=== PATIENT | female | born 1965 | race Caucasian/White ===

== ENCOUNTER → 2021-02-13 15:19 | Outpatient (CLI) | payer OTHER, SELFPAY ==
--- NOTE | ~2021-02-13 | XR_ITS ---
EXAMINATION: XR abdomen/kub 1V INDICATION: History of kidney stones TECHNIQUE: Supine views of the abdomen were obtained on 2 radiographs. COMPARISON: CT from the same date FINDINGS: The 4 mm left kidney stone seen on CT is not definitely identified. The bowel gas pattern i s normal. There are phleboliths of the pelvis. IMPRESSION: 1. No urolithiasis identified. Reviewed, dictated and finalized at location A.
--- NOTE | ~2021-02-13 | CT_ITS ---
EXAMINATION: CT abdomen pelvis wo con DATE: 02/13/2021 15:44 INDICATION: Recent urinary tract infection, history of kidney stones TECHNIQUE: Computed tomography (CT) of the abdomen and pelvis was performed without intravenous contr ast. The dose-length product (DLP) was 270.44 mGy-cm. Automated exposure control and iterative recons truction technique were employed. COMPARISON: None FINDINGS: Minimal dependent atelectasis is present in the lung bases. The heart size is normal. Cysts of the liver measure up to 3.8 cm in the right hepatic lobe. Punctate calcifications in an otherwise normal spleen likely represent healed granulomatous disease. The pancreas, gallbladder, and adrenal glands are normal. There is a 4 mm linear nonobstructing stone of the left kidney lower pole. The rig ht kidney is unremarkable. No stones are present in the ureters or bladder. There is no hydronephrosi s or hydroureter. No pathologically enlarged abdominal or pelvic lymph nodes are identified. There is no free intraperitoneal gas or evidence of bowel obstruction. There is mild lumbar spondylosis. IMPRESSION: 1. Nonobstructing left nephrolithiasis. Reviewed, dictated and finalized at location A.
== END ==
PROVIDERS: PCP Internal Medicine; Visit Provider Urology
DX: N20.0 Calculus of kidney (principal)
CPT/HCPCS: 74018; 74176

== ENCOUNTER 2021-11-27 13:50 | Outpatient (CLI) | payer OTHER, SELFPAY ==
--- NOTE | ~2021-11-27 | XR_ITS ---
EXAMINATION: XR abdomen/kub 1V DATE: 11/27/2021 14:23 INDICATION: Kidney stones. TECHNIQUE: A supine view of the abdomen on 2 radiographs was obtained. COMPARISON: CT abdomen and pelvis 02/13/2021 FINDINGS: There is a 2 mm stone in left kidney. There are no dilated loops of bowel. There are phlebo liths in the pelvis. IMPRESSION: 1. 2 mm stone in left kidney. Reviewed, dictated and finalized at location A.
== END 2021-11-27 13:51 | disposition home or self-care (01) ==
PROVIDERS: PCP Internal Medicine; Visit Provider Urology
DX: N20.0 Calculus of kidney (principal)
CPT/HCPCS: 74018

== ENCOUNTER 2022-12-24 14:14 | Outpatient (CLI) | payer OTHER, SELFPAY ==
--- NOTE | ~2022-12-24 | XR_ITS ---
EXAM: XR abdomen/kub 1V DATE: 12/24/2022 15:52 HISTORY: BILATERAL KIDNEY STONES . COMPARISON: 11/27/2021. FINDINGS: Normal bowel gas pattern. No organomegaly. Punctate calcifications project over the left i nferior renal shadow. Pelvic phleboliths. Regional bones and soft tissues normal for age. IMPRESSION: Left nephrolithiasis. Reviewed, dictated and finalized at location K. IMPRESSION: Left nephrolithiasis.
== END 2022-12-24 14:15 | disposition home or self-care (01) ==
PROVIDERS: PCP Family Medicine; Visit Provider Urology
DX: N20.0 Calculus of kidney (principal)
CPT/HCPCS: 74018

== ENCOUNTER 2023-12-30 14:18 | Outpatient (CLI) | payer OTHER, SELFPAY ==
--- NOTE | ~2023-12-30 | XR_ITS ---
EXAM: XR abdomen/kub 1V DATE: 12/30/2023 14:42 HISTORY: [facility] KIDNEY STONES F/U . COMPARISON: 12/24/2022. FINDINGS: Clear lung bases. Normal bowel gas pattern. No organomegaly. Punctate hyperdensities proje ct over the kidneys, likely representing bowel content. The 2 mm left lower pole calcification descri bed in prior reports is not confidently identified. Regional bones and soft tissues normal for age. IMPRESSION: No definite evidence of nephrolithiasis. The 2 mm left lower pole calcification is no kathy macario identified. Reviewed, dictated and finalized at location K. IMPRESSION: No definite evidence of nephrolithiasis. The 2 mm left lower pole c alcification is no longer identified.
== END 2023-12-30 14:19 | disposition home or self-care (01) ==
LOC: ANHIMG 14:25
PROVIDERS: PCP Family Medicine; Visit Provider Urology
DX: N20.0 Calculus of kidney (principal)
CPT/HCPCS: 74018

== ENCOUNTER 2025-01-11 14:16 | Outpatient (CLI) | payer OTHER, SELFPAY ==
--- NOTE | ~2025-01-11 | XR_ITS ---
XR abdomen/kub 1V 01/11/2025 14:31 Indication: Bilateral kidney stones Procedure: KUB Comparison: Comparison to multiple prior studies sequentially, with oldest reviewed study dated 02/13. Findings: Bowel gas pattern nonobstructive. Moderate colonic fecal loading. No definite renal stones are identified. There are punctate radiodensities bilaterally in the abdomen, likely bowel content. N o acute osseous abnormality. There are pelvic phleboliths which are unchanged. Impression: 1: No acute abdominal abnormality. Reviewed, dictated and finalized at location [] Impression: 1: No acute abdominal abnormality.
== END 2025-01-11 14:17 | disposition home or self-care (01) ==
LOC: ANHIMG 14:20
PROVIDERS: PCP Nurse Practitioner Family; Visit Provider Urology
DX: N20.0 Calculus of kidney (principal)
CPT/HCPCS: 74018